=== PATIENT | male | born 1990 | race Caucasian/White ===

== ENCOUNTER 2019-06-25 15:21 | Inpatient (IN) | payer OTHER ==
[2019-06-25 17:37] VITALS: BMI 37.9
--- NOTE | 2019-06-25 19:06 | PN ---
Teaching Attending Note Name of Resident: Lalitha Dietrich ATTENDING PHYSICIAN STATEMENT I saw and evaluated the patient. I reviewed the resident's note and discussed the case with the resident. I agree with the resident's findings and plan as documented. SUBJECTIVE: 28 yo with no medical problems, with alcohol use disorder, K2 use and here for detox. alcohol- drinks 2 pints of vodka/day was in court mandated program last year- relapsed after completing the program K2 2 blunts/day CIWA 12 OBJECTIVE: Vital Signs - 24 hr 06/25/19 17:32 Temperature 97.1 F L Pulse Rate 65 Respiratory 16 Rate Blood Pressure 132/92 alert and oriented tremulous ASSESSMENT AND PLAN: alcohol detox protocol
[2019-06-25] MEDS ORDERED: ACETAMINOPHEN 325 MG TABLET (FP) PO PRN ×2 (19:22)
[2019-06-25] MEDS ORDERED: MAGNESIUM HYDROX 2400MG/30ML ORAL SUSPENSION 30 ML CUP PO PRN (19:22)
[2019-06-25] MEDS ORDERED: MELATONIN 5 MG TABLETS PO PRN (19:22)
[2019-06-25] MEDS ORDERED: IBUPROFEN 400 MG TABLET (FP) PO PRN (19:22)
[2019-06-25] MEDS ORDERED: MENTHOL/PHENOL 1 EACH UD MM PRN (19:22)
[2019-06-25] MEDS ORDERED: BISMUTH SUBSALICYLATE 524 MG/30 ML UD PO PRN (19:22)
[2019-06-25] MEDS ORDERED: NICOTINE POLACRILEX 2 MG GUM BUC PRN (19:22)
[2019-06-25] MEDS ORDERED: MAGNESIUM CITRATE 300 ML BOTTLE PO PRN (19:22)
[2019-06-25] MEDS ORDERED: MAG HYDROX/AL HYDROX/SIMETH 30 ML UNIT-DOSE CUP PO PRN (19:22)
[2019-06-25] MEDS ORDERED: hydrOXYzine PAMOATE 25 MG CAPSULE (FP) PO PRN (19:22)
[2019-06-25] MEDS ORDERED: chlordiazePOXIDE HCL 25 MG CAPSULE PO PRN (19:22)
[2019-06-25] MEDS ORDERED: METHOCARBAMOL 500 MG TABLET PO PRN (19:22)
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
[2019-06-25] MEDS ORDERED: chlordiazePOXIDE HCL 25 MG CAPSULE PO ONE (19:45)
[2019-06-25] MEDS ORDERED: THIAMINE HCL 100 MG TABLET (FP) PO SCH (22:00)
[2019-06-25] MEDS: chlordiazePOXIDE HCL 25 MG CAPSULE PO SCH (22:04)
[2019-06-26] MEDS: chlordiazePOXIDE HCL 25 MG CAPSULE PO SCH ×3 (06:18→18:09)
[2019-06-26] MEDS ORDERED: PRENATAL VITAMINS W/ FOLIC ACID TABLET (FP) PO SCH (10:00)
[2019-06-26 10:53] LABS: HEMATOCRIT 42.2 % (35.4-49); HEMOGLOBIN 14.2 GM/dL (11.7-16.9); MCH 30.4 pg (25.7-33.7); MCHC 33.7 g/dl (32.0-35.9); MEAN PLT VOLUME 8.4 fl (7.5-11.1); PLATELET COUNT 295 K/MM3 (134-434); RBC 4.69 M/mm3 (4.00-5.60); RDW 14.1 % (11.9-15.9); WHITE BLOOD COUNT 8.7 K/mm3 (4.0-10.0)
[2019-06-26 11:07] LABS: ALBUMIN 3.5 g/dl (3.4-5.0); BLOOD UREA NITROGEN 13.4 mg/dL (7-18); CALCIUM 9.2 mg/dL (8.5-10.1); CREATININE 0.9 mg/dL (0.55-1.3); POTASSIUM 4.3 mmol/L (3.5-5.1); TOT PROT 6.7 g/dl (6.4-8.2)
--- NOTE | 2019-06-26 11:51 | PN ---
S CIWA - CIWA Score Nausea/Vomitin-Mild Nausea/No Vomiting Muscle Tremors: 1-None Visible, but [place] Anxiety: 1-Mildly Anxious Agitation: 1-Slight > Activity Paroxysmal Sweats: No Perspiration Orientation: 0-Oriented Tacttile Disturbances: 0-None Auditory Disturbances: 0-None Visual Disturbances: 0-None Headache: 0-None Present CIWA-Ar Total Score: 4 [facility] Progress Note (SOAP) Subjective: Patient has no complaints. Objective: 06/26/19 11:51 Laboratory 06/26/19 06/26/19 06/26/19 07:00 07:00 07:00 WBC 8.7 K/mm3 K/mm3 (4.0-10.0) RBC 4.69 M/mm3 M/mm3 (4.00-5.60) Hgb 14.2 GM/dL GM/dL (11.7-16.9) Hct 42.2 % % (35.4-49) MCV 90.0 fl fl (80-96) MCH 30.4 pg pg (25.7-33.7) MCHC 33.7 g/dl g/dl (32.0-35.9) RDW 14.1 % % (11.9-15.9) Plt Count 295 K/MM3 D K/MM3 (134-434) MPV 8.4 fl fl (7.5-11.1) Sodium 141 mmol/L mmol/L (136-145) Potassium 4.3 mmol/L mmol/L (3.5-5.1) Chloride 104 mmol/L mmol/L (98-107) Carbon Dioxide 32 mmol/L mmol/L (21-32) Anion Gap 4 MMOL/L L MMOL/L (8-16) BUN 13.4 mg/dL mg/dL (7-18) Creatinine 0.9 mg/dL mg/dL (0.55-1.3) Est GFR (CKD-EPI)AfAm 135.19 Est GFR (CKD-EPI)NonAf 116.64 Random Glucose 94 mg/dL mg/dL (74-106) Calcium 9.2 mg/dL mg/dL (8.5-10.1) Total Bilirubin 1.0 mg/dL mg/dL (0.2-1) AST 13 U/L L U/L (15-37) ALT 22 U/L U/L (13-61) Alkaline Phosphatase 74 U/L U/L (45-117) Total Protein 6.7 g/dl g/dl (6.4-8.2) Albumin 3.5 g/dl g/dl (3.4-5.0) HIV 1&2 Antibody Screen Cancelled HIV P24 Antigen Cancelled Assessment: 06/26/19 11:51 1. Alcohol Withdrawal Plan: 1. Alcohol Withdrawal: Patient is actually feeling better. Continue detox. Labs reviewed no abnormalities. Dr. Ramirez
[2019-06-26 17:17] VITALS: BP 104/66; PULSE 72; TEMP 97.1
--- NOTE | 2019-06-26 18:06 | DS ---
[facility] Detox Discharge Summary Admission Date: 06/25/19 Discharge Date: 06/26/19 - History Pertinent Past History: Pt here for alcohol and K2 use- pt now states that he feels "dope sick" and needs to go out to get this. Urine tox at admission did not show opioids. - Physical Exam Results Vital Signs: Vital Signs Temperature 97.1 F L 06/26/19 17:16 Pulse Rate 72 06/26/19 17:16 Respiratory Rate 18 06/26/19 17:16 Blood Pressure 104/66 06/26/19 17:16 O2 Sat by Pulse Oximetry (%) - Medication Discharge Medications: Ambulatory Orders NK [No Known Home Medication] 07/24/14
[2019-06-27] MEDS ORDERED: chlordiazePOXIDE HCL 25 MG CAPSULE PO SCH (05:00)
[2019-06-28] MEDS ORDERED: chlordiazePOXIDE HCL 10 MG CAPSULE PO PRN
[2019-06-28] MEDS ORDERED: chlordiazePOXIDE HCL 10 MG CAPSULE PO SCH (05:00)
[2019-06-29] MEDS ORDERED: chlordiazePOXIDE HCL 10 MG CAPSULE PO SCH (05:00)
[2019-06-30] MEDS ORDERED: chlordiazePOXIDE HCL 10 MG CAPSULE PO ONE (05:00)
== END 2019-06-26 18:30 | disposition left against medical advice (07) | DRG 770 ==
LOC: YASAS 15:21 → Y3N 19:39
PROVIDERS: ADMIT Surgery; ATTEND Surgery
PROC: HZ2ZZZZ Detoxification Services for Substance Abuse Treatment (ICD-10-PCS; principal; 2019-06-25)
DX: F10.230 Alcohol dependence with withdrawal, uncomplicated (principal); F12.20 Cannabis dependence, uncomplicated; F17.210 Nicotine dependence, cigarettes, uncomplicated; J45.909 Unspecified asthma, uncomplicated
CPT/HCPCS: 36415; 80053; 85027; 86480; 86593; 87389

== ENCOUNTER 2019-11-02 08:26 | Inpatient (IN) | payer OTHER ==
[2019-11-02 08:39] VITALS: BMI 34.4
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
[2019-11-02] MEDS ORDERED: MENTHOL/PHENOL 1 EACH UD MM PRN (09:06)
[2019-11-02] MEDS ORDERED: MAGNESIUM CITRATE 300 ML BOTTLE PO PRN (09:06)
[2019-11-02] MEDS ORDERED: MAGNESIUM HYDROX 2400MG/30ML ORAL SUSPENSION 30 ML CUP PO PRN (09:06)
[2019-11-02] MEDS ORDERED: LORazepam 1 MG TABLET PO PRN (09:06)
[2019-11-02] MEDS ORDERED: MELATONIN 5 MG TABLETS PO PRN (09:06)
[2019-11-02] MEDS ORDERED: hydrOXYzine PAMOATE 25 MG CAPSULE (FP) PO PRN (09:06)
[2019-11-02] MEDS ORDERED: IBUPROFEN 400 MG TABLET (FP) PO PRN (09:06)
[2019-11-02] MEDS ORDERED: MAG HYDROX/AL HYDROX/SIMETH 30 ML UNIT-DOSE CUP PO PRN (09:06)
[2019-11-02] MEDS ORDERED: ACETAMINOPHEN 325 MG TABLET (FP) PO PRN (09:06)
[2019-11-02] MEDS ORDERED: BISMUTH SUBSALICYLATE 262 MG/15 ML BTL PO PRN (09:06)
[2019-11-02] MEDS: PRENATAL VITAMINS W/ FOLIC ACID TABLET (FP) PO SCH (10:09)
[2019-11-02] MEDS: NICOTINE 14 MG/24 HOURS TOPICAL PATCH TD SCH (10:09)
[2019-11-02] MEDS: LORazepam 2 MG TABLET PO SCH ×3 (10:09→22:29)
[2019-11-02] MEDS ORDERED: PNEUMOCOCCAL 23 VACCINE 0.5 ML VIAL IM ONE (12:00)
[2019-11-02 12:33] LABS: HEMATOCRIT 45.8 % (35.4-49); HEMOGLOBIN 15.3 GM/dL (11.7-16.9); MCH 30.4 pg (25.7-33.7); MCHC 33.5 g/dl (32.0-35.9); MEAN CELL VOLUME 90.7 fl (80-96); MEAN PLT VOLUME 8.3 fl (7.5-11.1); PLATELET COUNT 286 K/MM3 (134-434); RBC 5.06 M/mm3 (4.00-5.60); RDW 14.5 % (11.9-15.9); WHITE BLOOD COUNT 6.4 K/mm3 (4.0-10.0)
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
[2019-11-02 12:48] LABS: ALBUMIN 4.1 g/dl (3.4-5.0); BILIRUBIN,TOTAL 0.5 mg/dL (0.2-1); BLOOD UREA NITROGEN 10.1 mg/dL (7-18); CREATININE 0.9 mg/dL (0.55-1.3); POTASSIUM 4.1 mmol/L (3.5-5.1); TOT PROT 7.1 g/dl (6.4-8.2)
[2019-11-02] MEDS: THIAMINE HCL 100 MG TABLET (FP) PO SCH (22:29)
[2019-11-03] MEDS: LORazepam 2 MG TABLET PO SCH ×4 (06:04→22:28)
[2019-11-03] MEDS: hydrOXYzine PAMOATE 50 MG CAPSULE (FP) PO PRN ×3 (06:30→18:37)
--- NOTE | 2019-11-03 10:00 | PN ---
S CIWA - CIWA Score Nausea/Vomitin-Mild Nausea/No Vomiting Muscle Tremors: 2 Anxiety: 3 Agitation: 3 Paroxysmal Sweats: No Perspiration Orientation: 0-Oriented Tacttile Disturbances: 3-Moderate Itch/Numb/Burn Auditory Disturbances: 0-None Visual Disturbances: 0-None Headache: 1-Very Mild CIWA-Ar Total Score: 13 S Progress Note (SOAP) Subjective: alert,irritable,anxious,interrupted sleep,pain in the body,insomnia Objective: 11/03/19 09:58 Vital Signs Temperature 97.9 F 11/03/19 09:22 Pulse Rate 102 H 11/03/19 09:22 Respiratory Rate 18 11/03/19 09:22 Blood Pressure 128/83 11/03/19 09:22 O2 Sat by Pulse Oximetry (%) 11/03/19 09:58 Laboratory Last Values WBC 6.4 K/mm3 (4.0-10.0) 11/02/19 09:15 RBC 5.06 M/mm3 (4.00-5.60) 11/02/19 09:15 Hgb 15.3 GM/dL (11.7-16.9) 11/02/19 09:15 Hct 45.8 % (35.4-49) 11/02/19 09:15 MCV 90.7 fl (80-96) 11/02/19 09:15 MCH 30.4 pg (25.7-33.7) 11/02/19 09:15 MCHC 33.5 g/dl (32.0-35.9) 11/02/19 09:15 RDW 14.5 % (11.9-15.9) 11/02/19 09:15 Plt Count 286 K/MM3 (134-434) 11/02/19 09:15 MPV 8.3 fl (7.5-11.1) 11/02/19 09:15 Sodium 138 mmol/L (136-145) 11/02/19 09:15 Potassium 4.1 mmol/L (3.5-5.1) 11/02/19 09:15 Chloride 102 mmol/L (98-107) 11/02/19 09:15 Carbon Dioxide 28 mmol/L (21-32) 11/02/19 09:15 Anion Gap 7 MMOL/L (8-16) L 11/02/19 09:15 BUN 10.1 mg/dL (7-18) 11/02/19 09:15 Creatinine 0.9 mg/dL (0.55-1.3) 11/02/19 09:15 Est GFR (CKD-EPI)AfAm 134.24 11/02/19 09:15 Est GFR (CKD-EPI)NonAf 115.82 11/02/19 09:15 Random Glucose 82 mg/dL (74-106) 11/02/19 09:15 Calcium 9.0 mg/dL (8.5-10.1) 11/02/19 09:15 Total Bilirubin 0.5 mg/dL (0.2-1) 11/02/19 09:15 AST 24 U/L (15-37) 11/02/19 09:15 ALT 31 U/L (13-61) 11/02/19 09:15 Alkaline Phosphatase 70 U/L (45-117) 11/02/19 09:15 Total Protein 7.1 g/dl (6.4-8.2) 11/02/19 09:15 Albumin 4.1 g/dl (3.4-5.0) 11/02/19 09:15 RPR Titer Nonreactive (NONREACTIVE) 11/02/19 09:15 Assessment: 11/03/19 10:00 withdrawal symptom Plan: continue detox ativan regimen
[2019-11-03] MEDS: PRENATAL VITAMINS W/ FOLIC ACID TABLET (FP) PO SCH (10:36)
[2019-11-03] MEDS: NICOTINE 14 MG/24 HOURS TOPICAL PATCH TD SCH (10:38)
[2019-11-03] MEDS ORDERED: PNEUMOC 13-VAL CONJ-DIP CRM/PF 0.5 ML DISP.SYRIN IM ONE (12:00)
[2019-11-03] MEDS ORDERED: FLU VACCINE QUAD 60 MCG/0.5 ML (MDV 19-20) IM ONE (12:00)
[2019-11-03] MEDS: QUEtiapine FUMARATE 50 MG TABLET PO SCH (22:29)
[2019-11-03] MEDS: THIAMINE HCL 100 MG TABLET (FP) PO SCH (22:29)
[2019-11-04] MEDS: LORazepam 1 MG TABLET PO SCH ×4 (06:47→22:10)
[2019-11-04] MEDS ORDERED: NAPROXEN 375 MG TABLET PO PRN (09:17)
[2019-11-04] MEDS ORDERED: BENZTROPINE MESYLATE 1 MG TABLET PO PRN (09:33)
--- NOTE | 2019-11-04 09:40 | PN ---
Psychiatric Progress Note Vital Signs: Vital Signs Period Temp Pulse Resp BP Sys/Singh Pulse Ox Last 24 Hr 97.1 F-98.4 F 74-86 16-18 123-134/61-84 Date of Session: 11/04/19 Chief Complaint:: Consultation ordered for re evaluation of patient. HPI: Patient admitted to for alcohol and cannabis dependence. Consultation ordered after patient was observed pacing around the unit and talking to self by nursing staff. ROS: Patient is alert + oriented X3. Patient appears restless but is redirectable. Current Medications: Active Medications Generic Name Dose Route Start Last Admin Trade Name Freq PRN Reason Stop Dose Admin Acetaminophen 650 mg 11/02/19 09:06 Tylenol - PO Q6H PRN PAIN LEVEL 4 - 6 Acetaminophen 650 mg 11/02/19 09:06 Tylenol - PO Q6H PRN FEVER Al Hydroxide/Mg Hydroxide 30 ml 11/02/19 09:06 Mylanta Oral Suspension - PO Q6H PRN DYSPEPSIA Benztropine Mesylate 0.5 mg 11/04/19 09:33 Cogentin - PO BID PRN stiffness Bismuth Subsalicylate 30 ml 11/02/19 09:06 Pepto-Bismol Liquid - PO Q1H PRN DIARRHEA Eucalyptus/Menthol/Phenol/Sorbitol 1 each 11/02/19 09:06 Cepastat Lozenge - MM 11/08/19 09:06 Q4H PRN SORE THROAT Hydroxyzine Pamoate 50 mg 11/02/19 13:04 11/03/19 18:37 Vistaril - PO 11/08/19 09:06 50 mg Q6H PRN Administration For Anxiety Lorazepam 0.5 mg 11/05/19 05:00 Ativan - PO 11/05/19 23:01 Q6H SHANNON Lorazepam 0.5 mg 11/05/19 00:00 Ativan - PO 11/06/19 00:00 Q4H PRN Symptoms of Withdrawal Lorazepam 0.5 mg 11/06/19 05:00 Ativan - PO 11/06/19 05:01 ONCE ONE Lorazepam 1 mg 11/04/19 05:00 11/04/19 06:47 Ativan - PO 11/04/19 23:01 Not Given 0500,1100,1700,2300 SHANNON Lorazepam 1 mg 11/02/19 09:06 11/03/19 15:01 Ativan - PO 11/04/19 23:59 1 mg Q4H PRN Administration Symptoms of Withdrawal Magnesium Citrate 300 ml 11/02/19 09:06 Citroma - PO Q48H PRN CONSTIPATION Magnesium Hydroxide 30 ml 11/02/19 09:06 Milk Of Magnesia - PO PRN PRN CONSTIPATION Melatonin 5 mg 11/02/19 09:06 11/03/19 22:29 Melatonin PO 5 mg HS PRN Administration INSOMNIA Methocarbamol 500 mg 11/02/19 09:06 Robaxin - PO 11/08/19 09:06 Q6H PRN MUSCLE SPASMS Naproxen 375 mg 11/04/19 09:17 Naprosyn - PO BID PRN PAIN LEVEL 4 - 6 Nicotine 14 mg 11/02/19 10:00 11/03/19 10:38 Nicoderm Patch - TD Not Given DAILY SHANNON Olanzapine 5 mg 11/04/19 10:00 Zyprexa - PO BID SHANNON Multivit/Folic Acid/Iron 1 tab 11/02/19 10:00 11/03/19 10:36 Vitamins (Sjr) - PO 1 tab DAILY SHANNON Administration Quetiapine Fumarate 50 mg 11/03/19 22:00 11/03/19 22:29 Seroquel - PO 50 mg HS SHANNON Administration Thiamine HCl 100 mg 11/02/19 22:00 11/03/19 22:29 Vitamin B1 - PO 100 mg HS SHANNON Administration Medication(s) Change(s): Yes. Will order zyprexa 5mg BID + Cogentin 0.5mg BID PRN + Vistaril 50mg Q4H Current Side Effect: No Lab tests ordered: No Lab tests reviewed: Yes Provider note:: Consultation ordered after patient was observed by nursing staff to be pacing around unit, talking to self, cursing loudly and activing erratic. Upon appoach patient was cooperative with marketing writer and able to speak to marketing writer inside of his room. Patient able to answer questions appropriately. States that he is homeless and currently resides in in the [address] [place] [address]. States that he would like to complete detox and attend rehab. Patient appears slightly restless, anxious, slighly irritable, and labile but is redirectable. Patient with rambling speech but it can be possibly due to a speech disorder. Patient observed singing and dancing in front of the mirror of the nursing station. When asked if he is aware of his behavior, patient stated, " I like rap music" then displays his tattoo's to marketing writer. Despite denying psychotic symptoms patient may be internally preoccupied. Patient in agreement to accept psychotropic medications. Will continue seroquel 50mg for insomnia. Will add Zyprexa 5mg BID + cogentin 0.5mg BID PRN. He denies auditory/visual hallucinations. Denies thoughts or urges to hurt self or others. If patient refuses to accept medication or further decompensates patient should be considered for psychiatric transfer to [facility]. Case discussed with Dr. Tse and nursing staff. Total face to face time:: 30 Mental Status Exam - Mental Status Exam Alert and Oriented to: Time, Place, Person Cognitive Function: Good Patient Appearance: Well Groomed Mood: Withdrawn, Anxious Affect: Labile Patient Behavior: Restless (despite restless behavior patient is cooperative with interviewer), Cooperative Speech Pattern: Slurred, Rambling Voice Loudness: Normal Thought Process: Goal Oriented Thought Disorder: Present (possibly internally preoccupied but willing to accept medications and cooperative with marketing writer) Hallucinations: Denies Suicidal Ideation: Denies Homicidal Ideation: Denies Insight/Judgement: Poor Sleep: Fair Appetite: Fair Muscle strength/Tone: Normal Gait/Station: Normal Psychiatric Treatment Plan - Problem List (1) Substance induced mood disorder Current Visit: Yes (2) Alcohol dependence with withdrawal Current Visit: Yes Qualifiers: Complication of substance-induced condition: uncomplicated Qualified Code(s ): F10.230 - Alcohol dependence with withdrawal, uncomplicated (3) Cannabis dependence Current Visit: Yes (4) Nicotine dependence Current Visit: Yes Qualifiers: Nicotine product type: cigarettes Substance use status: uncomplicated Qualified Code(s): F17.210 - Nicotine dependence, cigarettes, uncomplicated (5) Substance-induced sleep disorder Current Visit: Yes (6) Drug-induced mood disorder Current Visit: Yes (7) Drug-induced psychotic disorder Current Visit: Yes Qualifiers: Complication of substance-induced condition: with unspecified complication Qualified Code(s): F19.959 - Other psychoactive substance use, unspecified with psychoactive substance-induced psychotic disorder, unspecified Comment: Suspected/rule-out
--- NOTE | 2019-11-04 10:08 | PN ---
S CIWA - CIWA Score Nausea/Vomitin-Mild Nausea/No Vomiting Muscle Tremors: 1-None Visible, but [place] Anxiety: 2 Agitation: 2 Paroxysmal Sweats: No Perspiration Orientation: 0-Oriented Tacttile Disturbances: 1-Very Mild Itch/Numbness Auditory Disturbances: 0-None Visual Disturbances: 0-None Headache: 2-Mild CIWA-Ar Total Score: 9 BHS Progress Note (SOAP) Subjective: alert,irritable,anxious,interrupted sleep,oriented x3,no suicidal,no homicidal ideation Objective: 11/04/19 10:07 Vital Signs Temperature 97.7 F 11/04/19 09:52 Pulse Rate 90 11/04/19 09:52 Respiratory Rate 18 11/04/19 09:52 Blood Pressure 125/93 11/04/19 09:52 O2 Sat by Pulse Oximetry (%) Laboratory Last Values WBC 6.4 K/mm3 (4.0-10.0) 11/02/19 09:15 RBC 5.06 M/mm3 (4.00-5.60) 11/02/19 09:15 Hgb 15.3 GM/dL (11.7-16.9) 11/02/19 09:15 Hct 45.8 % (35.4-49) 11/02/19 09:15 MCV 90.7 fl (80-96) 11/02/19 09:15 MCH 30.4 pg (25.7-33.7) 11/02/19 09:15 MCHC 33.5 g/dl (32.0-35.9) 11/02/19 09:15 RDW 14.5 % (11.9-15.9) 11/02/19 09:15 Plt Count 286 K/MM3 (134-434) 11/02/19 09:15 MPV 8.3 fl (7.5-11.1) 11/02/19 09:15 Sodium 138 mmol/L (136-145) 11/02/19 09:15 Potassium 4.1 mmol/L (3.5-5.1) 11/02/19 09:15 Chloride 102 mmol/L (98-107) 11/02/19 09:15 Carbon Dioxide 28 mmol/L (21-32) 11/02/19 09:15 Anion Gap 7 MMOL/L (8-16) L 11/02/19 09:15 BUN 10.1 mg/dL (7-18) 11/02/19 09:15 Creatinine 0.9 mg/dL (0.55-1.3) 11/02/19 09:15 Est GFR (CKD-EPI)AfAm 134.24 11/02/19 09:15 Est GFR (CKD-EPI)NonAf 115.82 11/02/19 09:15 Random Glucose 82 mg/dL (74-106) 11/02/19 09:15 Calcium 9.0 mg/dL (8.5-10.1) 11/02/19 09:15 Total Bilirubin 0.5 mg/dL (0.2-1) 11/02/19 09:15 AST 24 U/L (15-37) 11/02/19 09:15 ALT 31 U/L (13-61) 11/02/19 09:15 Alkaline Phosphatase 70 U/L (45-117) 11/02/19 09:15 Total Protein 7.1 g/dl (6.4-8.2) 11/02/19 09:15 Albumin 4.1 g/dl (3.4-5.0) 11/02/19 09:15 RPR Titer Nonreactive (NONREACTIVE) 11/02/19 09:15 Assessment: 11/04/19 10:07 withdrawal symptom Plan: continue detox ativan regimen,psychiatric evaluation
[2019-11-04] MEDS: NICOTINE 14 MG/24 HOURS TOPICAL PATCH TD SCH (10:16)
[2019-11-04] MEDS: hydrOXYzine PAMOATE 50 MG CAPSULE (FP) PO PRN ×2 (10:17→19:55)
[2019-11-04] MEDS: PRENATAL VITAMINS W/ FOLIC ACID TABLET (FP) PO SCH (10:17)
[2019-11-04] MEDS: OLANZapine 5 MG TABLET PO SCH ×2 (10:59→22:10)
[2019-11-04] MEDS: METHOCARBAMOL 500 MG TABLET PO PRN ×2 (11:39→17:16)
[2019-11-04] MEDS: cloNIDine HCL 0.1 MG TABLET PO SCH ×2 (11:39→22:10)
[2019-11-04] MEDS: THIAMINE HCL 100 MG TABLET (FP) PO SCH (22:10)
[2019-11-04] MEDS: QUEtiapine FUMARATE 50 MG TABLET PO SCH (22:10)
[2019-11-05] MEDS ORDERED: LORazepam 0.5 MG TABLET PO PRN
[2019-11-05] MEDS: LORazepam 0.5 MG TABLET PO SCH ×4 (06:38→22:09)
[2019-11-05] MEDS: ACETAMINOPHEN 325 MG TABLET (FP) PO PRN ×2 (07:06→17:27)
[2019-11-05] MEDS: cloNIDine HCL 0.1 MG TABLET PO SCH ×2 (10:13→22:09)
[2019-11-05] MEDS: NICOTINE 14 MG/24 HOURS TOPICAL PATCH TD SCH (10:13)
[2019-11-05] MEDS: PRENATAL VITAMINS W/ FOLIC ACID TABLET (FP) PO SCH (10:13)
[2019-11-05] MEDS: OLANZapine 5 MG TABLET PO SCH ×2 (10:13→22:09)
--- NOTE | 2019-11-05 10:52 | PN ---
S CIWA - CIWA Score Nausea/Vomitin-Mild Nausea/No Vomiting Muscle Tremors: 1-None Visible, but [place] Anxiety: 2 Agitation: 2 Paroxysmal Sweats: No Perspiration Orientation: 0-Oriented Tacttile Disturbances: 1-Very Mild Itch/Numbness Auditory Disturbances: 0-None Visual Disturbances: 0-None Headache: 1-Very Mild CIWA-Ar Total Score: 8 BHS Progress Note (SOAP) Subjective: alert,irritable,anxious,mentioned has multiple lesions of scrotal noel for 4 month Objective: 11/05/19 10:47 Vital Signs Temperature 97.3 F L 11/05/19 09:42 Pulse Rate 90 11/05/19 09:42 Respiratory Rate 18 11/05/19 09:42 Blood Pressure 141/55 L 11/05/19 09:42 O2 Sat by Pulse Oximetry (%) 11/05/19 10:48 withdrawal symptom Assessment: 11/05/19 10:49 withdrawal symptom 11/05/19 10:49 multiple skin lesions of scrotal noel for 4 months Plan: continue detox ativan regimen,psychiatric evaluation for anxiety,patient will be followed up by his medical provider for follow up on lesions of scrotal wall
[2019-11-05] MEDS: METHOCARBAMOL 500 MG TABLET PO PRN (10:53)
[2019-11-05] MEDS: hydrOXYzine PAMOATE 50 MG CAPSULE (FP) PO PRN (10:54)
[2019-11-05] MEDS: QUEtiapine FUMARATE 50 MG TABLET PO SCH (22:09)
[2019-11-05] MEDS: THIAMINE HCL 100 MG TABLET (FP) PO SCH (22:21)
[2019-11-06] MEDS ORDERED: LORazepam 0.5 MG TABLET PO ONE (05:00)
[2019-11-06 07:06] VITALS: BP 133/67; PULSE 48; TEMP 97.7
--- NOTE | 2019-11-06 08:48 | DS ---
[facility] Detox Discharge Summary Admission Date: 11/02/19 Discharge Date: 11/06/19 - History Present History: Alcohol Dependence, Cannabis Dependence - Physical Exam Results Vital Signs: Vital Signs Temperature 97.7 F 11/06/19 07:05 Pulse Rate 48 L 11/06/19 07:05 Respiratory Rate 18 11/06/19 07:05 Blood Pressure 133/67 11/06/19 07:05 O2 Sat by Pulse Oximetry (%) Pertinent Admission Physical Exam Findings: Vital Signs Temperature 97.7 F 11/06/19 07:05 Pulse Rate 48 L 11/06/19 07:05 Respiratory Rate 18 11/06/19 07:05 Blood Pressure 133/67 11/06/19 07:05 O2 Sat by Pulse Oximetry (%) Laboratory Tests 11/02/19 11/02/19 11/02/19 09:15 09:15 09:15 WBC 6.4 RBC 5.06 Hgb 15.3 Hct 45.8 MCV 90.7 MCH 30.4 MCHC 33.5 RDW 14.5 Plt Count 286 MPV 8.3 Sodium 138 Potassium 4.1 Chloride 102 Carbon Dioxide 28 Anion Gap 7 L BUN 10.1 Creatinine 0.9 Est GFR (CKD-EPI)AfAm 134.24 Est GFR (CKD-EPI)NonAf 115.82 Random Glucose 82 Calcium 9.0 Total Bilirubin 0.5 AST 24 ALT 31 Alkaline Phosphatase 70 Total Protein 7.1 Albumin 4.1 RPR Titer Nonreactive aaox3 ambulating no acute distress - Treatment Hospital Course: Detox Protocol Followed, Detoxed Safely, Responded well, Discharged Condition Good, Rehab Referral Accepted Patient has Accepted a Rehab Referral to: referred to [facility] rehab - Medication Discharge Medications: Ambulatory Orders NK [No Known Home Medication] 07/24/14 - Diagnosis (1) Alcohol dependence with withdrawal Current Visit: Yes Status: Chronic Qualifiers: Complication of substance-induced condition: uncomplicated Qualified Code(s ): F10.230 - Alcohol dependence with withdrawal, uncomplicated (2) Drug-induced mood disorder Current Visit: Yes Status: Acute (3) Drug-induced psychotic disorder Current Visit: Yes Status: Acute Qualifiers: Complication of substance-induced condition: with unspecified complication Qualified Code(s): F19.959 - Other psychoactive substance use, unspecified with psychoactive substance-induced psychotic disorder, unspecified (4) Personality disorder Current Visit: Yes Status: Acute (5) Substance induced mood disorder Current Visit: Yes Status: Acute (6) Substance-induced sleep disorder Current Visit: Yes Status: Acute (7) Alcohol dependence, continuous Current Visit: Yes Status: Chronic (8) Asthma Current Visit: Yes Status: Chronic Qualifiers: Asthma severity: mild Asthma persistence: intermittent (9) Cannabis dependence Current Visit: Yes Status: Chronic (10) MDD (major depressive disorder) Current Visit: Yes Status: Chronic (11) Nicotine dependence Current Visit: Yes Status: Chronic Qualifiers: Nicotine product type: cigarettes Substance use status: uncomplicated Qualified Code(s): F17.210 - Nicotine dependence, cigarettes, uncomplicated - AMA Did Patient Leave Against Medical Advice: No
[2019-11-06] MEDS: cloNIDine HCL 0.1 MG TABLET PO SCH (10:17)
[2019-11-06] MEDS: PRENATAL VITAMINS W/ FOLIC ACID TABLET (FP) PO SCH (10:17)
[2019-11-06] MEDS: OLANZapine 5 MG TABLET PO SCH (10:17)
[2019-11-06] MEDS: NICOTINE 14 MG/24 HOURS TOPICAL PATCH TD SCH (10:18)
== END 2019-11-06 10:49 | disposition home or self-care (01) | DRG 775 ==
LOC: YASAS 08:26 → Y6N 09:29
PROVIDERS: ADMIT Allergy & Immunology; ATTEND Allergy & Immunology
PROC: HZ2ZZZZ Detoxification Services for Substance Abuse Treatment (ICD-10-PCS; principal; 2019-11-02)
DX: F10.230 Alcohol dependence with withdrawal, uncomplicated (principal); F12.20 Cannabis dependence, uncomplicated; F17.210 Nicotine dependence, cigarettes, uncomplicated; F19.24 Other psychoactive substance dependence with psychoactive substance-induced mood disorder; F19.282 Other psychoactive substance dependence with psychoactive substance-induced sleep disorder; F60.9 Personality disorder, unspecified; F19.951 Other psychoactive substance use, unspecified with psychoactive substance-induced psychotic disorder with hallucinations; F32.9 Major depressive disorder, single episode, unspecified; J45.20 Mild intermittent asthma, uncomplicated; N50.89 Other specified disorders of the male genital organs
CPT/HCPCS: 36415; 80053; 85027; 86593; 90732; G0008; G0009; J0735; Q2036

== ENCOUNTER 2022-08-21 10:21 | Inpatient (IN) | payer OTHER ==
[2022-08-21 12:01] VITALS: BMI 36.3
[2022-08-21] MEDS ORDERED: BENZOCAINE/MENTHOL (CHLORASEPTIC ) LOZENGE MM PRN (12:38)
[2022-08-21] MEDS ORDERED: NALOXONE HCL (KLOXXADO) 8 MG SPRAY NS PRN (12:38)
[2022-08-21] MEDS ORDERED: NICOTINE 10 MG CARTRIDGE (INHALER) IH PRN (12:38)
[2022-08-21] MEDS ORDERED: ONDANSETRON *ODT* 4 MG TABLET SL PRN (12:38)
[2022-08-21] MEDS ORDERED: IBUPROFEN 600 MG TABLET (FP) PO PRN (12:38)
[2022-08-21] MEDS ORDERED: MAGNESIUM CITRATE 300 ML BOTTLE PO PRN (12:38)
[2022-08-21] MEDS ORDERED: DICYCLOMINE HCL 10 MG CAPSULE PO PRN (12:38)
[2022-08-21] MEDS ORDERED: MAG HYDROX/AL HYDROX/SIMETH 30 ML UNIT-DOSE CUP PO PRN (12:38)
[2022-08-21] MEDS ORDERED: IBUPROFEN 400 MG TABLET (FP) PO PRN (12:38)
[2022-08-21] MEDS ORDERED: MAGNESIUM HYDROX 2400MG/30ML ORAL SUSPENSION 30 ML CUP PO PRN (12:38)
[2022-08-21] MEDS ORDERED: LOPERAMIDE HCL 2 MG CAPSULE PO PRN (12:38)
[2022-08-21] MEDS ORDERED: BISMUTH SUBSALICYLATE 524 MG/30 ML PO PRN (12:38)
[2022-08-21] MEDS ORDERED: ACETAMINOPHEN 325 MG TABLET (FP) PO PRN ×2 (12:38)
[2022-08-21] MEDS: hydrOXYzine PAMOATE 25 MG CAPSULE (FP) PO SCH ×3 (13:57→22:22)
[2022-08-21] MEDS ORDERED: ALBUTEROL SO4 HFA INHALER IH PRN (14:10)
[2022-08-21] MEDS ORDERED: BUDESONIDE/FORMETEROL FUMARATE 80/4.5 mcg INHALER IH SCH (22:00)
[2022-08-21] MEDS: THIAMINE HCL 100 MG TABLET (FP) PO SCH (22:21)
[2022-08-21] MEDS: BUDESONIDE/FORMETEROL FUMARATE 80/4.5 mcg INHALER IH SCH (22:22)
[2022-08-21] MEDS: MELATONIN 5 MG TABLETS PO SCH (22:23)
[2022-08-22] MEDS: hydrOXYzine PAMOATE 25 MG CAPSULE (FP) PO SCH ×5 (06:26→22:08)
[2022-08-22] MEDS ORDERED: cloNIDine HCL 0.1 MG TABLET PO PRN (08:51)
[2022-08-22] MEDS ORDERED: chlordiazePOXIDE HCL 25 MG CAPSULE PO PRN (08:51)
[2022-08-22] MEDS ORDERED: methaDONE HCL 10 MG TABLET (FOR DETOX USE ONLY) PO ONE (09:15)
[2022-08-22] MEDS: PRENATAL VITAMINS W/ FOLIC ACID TABLET (FP) PO SCH (10:15)
[2022-08-22] MEDS: risperiDONE 2 MG TABLET PO SCH ×2 (10:16→22:08)
[2022-08-22] MEDS: chlordiazePOXIDE HCL 25 MG CAPSULE PO SCH ×3 (10:16→22:08)
[2022-08-22] MEDS: METHOCARBAMOL 500 MG TABLET PO PRN (10:16)
[2022-08-22] MEDS: BUDESONIDE/FORMETEROL FUMARATE 80/4.5 mcg INHALER IH SCH ×2 (10:17→22:11)
[2022-08-22 15:06] LABS: CALCIUM 8.9 mg/dL (8.5-10.1)
[2022-08-22 15:07] LABS: ALBUMIN 3.6 g/dl (3.4-5.0); BLOOD UREA NITROGEN 16.8 mg/dL (7-18)
[2022-08-22 15:10] LABS: CREATININE 0.8 mg/dL (0.55-1.3)
[2022-08-22 15:12] LABS: BILIRUBIN,TOTAL 0.4 mg/dL (0.2-1); TOT PROT 6.8 g/dl (6.4-8.2)
[2022-08-22 15:13] LABS: HEMATOCRIT 38.5 % (35.4-49); HEMOGLOBIN 12.7 GM/dL (11.7-16.9); MCH 28.7 pg (25.7-33.7); MCHC 32.9 g/dl (32.0-35.9); MEAN CELL VOLUME 87.2 fl (80-96); MEAN PLT VOLUME 8.4 fl (7.5-11.1); PLATELET COUNT 323 10^3/uL (134-434); RBC 4.42 M/mm3 (4.00-5.60); RDW 14.4 % (11.9-15.9); WHITE BLOOD COUNT 8.9 K/mm3 (4.0-10.0)
[2022-08-22] MEDS: THIAMINE HCL 100 MG TABLET (FP) PO SCH (22:07)
[2022-08-22] MEDS: traZODone HCL 100 MG TABLET (FP) PO SCH (22:08)
[2022-08-22] MEDS: MELATONIN 5 MG TABLETS PO SCH (22:08)
[2022-08-23] MEDS: hydrOXYzine PAMOATE 25 MG CAPSULE (FP) PO SCH ×5 (05:46→23:02)
[2022-08-23] MEDS: chlordiazePOXIDE HCL 25 MG CAPSULE PO SCH ×4 (05:46→22:03)
[2022-08-23 10:02] LABS: EPI CELLS 13 /uL (0-25.1); HYALINE CASTS 1 /uL (0-3.1); PH,URINE 5.5 (5.0-8.0); URINE APPEARANCE CLEAR; URINE BACTERIA 63 /uL (0-1359); URINE BILIRUBIN NEGATIVE (NEGATIVE); URINE COLOR YELLOW; URINE GLUCOSE (UA) NEGATIVE (NEGATIVE); URINE KETONE NEGATIVE (NEGATIVE); URINE LEUK ESTERASE TRACE (NEGATIVE); URINE NITRITE NEGATIVE (NEGATIVE); URINE PROTEIN NEGATIVE (NEGATIVE); URINE RBC 2 /uL (0-23.9); URINE UROBILINOGEN 0.2 mg/dL (0.2-1.0); URINE WBC 53 /uL (0-25.8)
[2022-08-23] MEDS: risperiDONE 2 MG TABLET PO SCH ×2 (10:12→22:02)
[2022-08-23] MEDS: PRENATAL VITAMINS W/ FOLIC ACID TABLET (FP) PO SCH (10:12)
[2022-08-23] MEDS: METHOCARBAMOL 500 MG TABLET PO PRN (10:12)
[2022-08-23] MEDS: BUDESONIDE/FORMETEROL FUMARATE 80/4.5 mcg INHALER IH SCH ×2 (10:14→22:01)
[2022-08-23] MEDS: THIAMINE HCL 100 MG TABLET (FP) PO SCH (22:03)
[2022-08-23] MEDS: traZODone HCL 100 MG TABLET (FP) PO SCH (22:03)
[2022-08-23] MEDS: MELATONIN 5 MG TABLETS PO SCH (22:38)
[2022-08-24] MEDS: hydrOXYzine PAMOATE 25 MG CAPSULE (FP) PO SCH ×5 (06:20→22:19)
[2022-08-24] MEDS: chlordiazePOXIDE HCL 25 MG CAPSULE PO SCH ×4 (06:21→22:19)
[2022-08-24] MEDS ORDERED: methaDONE HCL 10 MG TABLET (FOR DETOX USE ONLY) PO ONE (10:00)
[2022-08-24] MEDS: PRENATAL VITAMINS W/ FOLIC ACID TABLET (FP) PO SCH (10:25)
[2022-08-24] MEDS: risperiDONE 2 MG TABLET PO SCH ×2 (10:25→22:21)
[2022-08-24] MEDS: METHOCARBAMOL 500 MG TABLET PO PRN (10:26)
[2022-08-24] MEDS: BUDESONIDE/FORMETEROL FUMARATE 80/4.5 mcg INHALER IH SCH ×2 (10:27→22:20)
[2022-08-24] MEDS ORDERED: FLU VACC QS2022-23(6MOS UP)/PF 60 MCG/0.5 ML SYRINGE IM ONE (14:00)
[2022-08-24] MEDS: MELATONIN 5 MG TABLETS PO SCH (22:19)
[2022-08-24] MEDS: THIAMINE HCL 100 MG TABLET (FP) PO SCH (22:19)
[2022-08-24] MEDS: traZODone HCL 100 MG TABLET (FP) PO SCH (22:19)
[2022-08-25] MEDS ORDERED: chlordiazePOXIDE HCL 10 MG CAPSULE PO PRN
[2022-08-25] MEDS: hydrOXYzine PAMOATE 25 MG CAPSULE (FP) PO SCH ×5 (05:31→22:29)
[2022-08-25] MEDS: chlordiazePOXIDE HCL 10 MG CAPSULE PO SCH ×4 (05:31→22:28)
[2022-08-25] MEDS: PRENATAL VITAMINS W/ FOLIC ACID TABLET (FP) PO SCH (10:05)
[2022-08-25] MEDS: risperiDONE 2 MG TABLET PO SCH ×2 (10:05→22:28)
[2022-08-25] MEDS: METHOCARBAMOL 500 MG TABLET PO PRN (10:05)
[2022-08-25] MEDS: BUDESONIDE/FORMETEROL FUMARATE 80/4.5 mcg INHALER IH SCH ×2 (10:07→22:29)
[2022-08-25] MEDS: THIAMINE HCL 100 MG TABLET (FP) PO SCH (22:28)
[2022-08-25] MEDS: traZODone HCL 100 MG TABLET (FP) PO SCH (22:28)
[2022-08-25] MEDS: MELATONIN 5 MG TABLETS PO SCH (23:17)
[2022-08-26] MEDS: chlordiazePOXIDE HCL 10 MG CAPSULE PO SCH ×2 (05:39→18:07)
[2022-08-26] MEDS: hydrOXYzine PAMOATE 25 MG CAPSULE (FP) PO SCH ×5 (05:39→22:24)
[2022-08-26] MEDS ORDERED: methaDONE HCL 10 MG TABLET (FOR DETOX USE ONLY) PO ONE (10:00)
[2022-08-26] MEDS: METHOCARBAMOL 500 MG TABLET PO PRN (10:21)
[2022-08-26] MEDS: risperiDONE 2 MG TABLET PO SCH ×2 (10:21→22:22)
[2022-08-26] MEDS: BUDESONIDE/FORMETEROL FUMARATE 80/4.5 mcg INHALER IH SCH ×2 (10:21→22:23)
[2022-08-26] MEDS: PRENATAL VITAMINS W/ FOLIC ACID TABLET (FP) PO SCH (10:21)
[2022-08-26 13:25] VITALS: RESP 18
[2022-08-26] MEDS: traZODone HCL 100 MG TABLET (FP) PO SCH (22:22)
[2022-08-26] MEDS: THIAMINE HCL 100 MG TABLET (FP) PO SCH (22:22)
[2022-08-26] MEDS: MELATONIN 5 MG TABLETS PO SCH (23:15)
[2022-08-27] MEDS ORDERED: chlordiazePOXIDE HCL 10 MG CAPSULE PO ONE (05:00)
[2022-08-27] MEDS: hydrOXYzine PAMOATE 25 MG CAPSULE (FP) PO SCH ×2 (05:37→09:13)
[2022-08-27 09:13] VITALS: BP 115/69; PULSE 92; TEMP 97.1
[2022-08-27] MEDS: PRENATAL VITAMINS W/ FOLIC ACID TABLET (FP) PO SCH (09:13)
[2022-08-27] MEDS: risperiDONE 2 MG TABLET PO SCH (09:13)
[2022-08-27] MEDS: BUDESONIDE/FORMETEROL FUMARATE 80/4.5 mcg INHALER IH SCH (09:14)
== END 2022-08-27 09:35 | disposition home or self-care (01) | DRG 773 ==
LOC: YASAS 10:21 → Y6N 13:16
PROVIDERS: ADMIT Allergy & Immunology; ATTEND Surgery
PROC: HZ2ZZZZ Detoxification Services for Substance Abuse Treatment (ICD-10-PCS; principal; 2022-08-21)
DX: F11.23 Opioid dependence with withdrawal (principal); F10.230 Alcohol dependence with withdrawal, uncomplicated; F14.20 Cocaine dependence, uncomplicated; F12.20 Cannabis dependence, uncomplicated; F17.210 Nicotine dependence, cigarettes, uncomplicated; F20.9 Schizophrenia, unspecified; F19.282 Other psychoactive substance dependence with psychoactive substance-induced sleep disorder; J45.20 Mild intermittent asthma, uncomplicated; E11.9 Type 2 diabetes mellitus without complications; E66.9 Obesity, unspecified; Z68.36 Body mass index [BMI] 36.0-36.9, adult; Z28.311 Partially vaccinated for COVID-19
CPT/HCPCS: 36415; 80053; 81003; 85027; 86780; C9803-CS; G0008; Q2036; U0003; U0005

== ENCOUNTER 2023-04-24 09:50 | Inpatient (IN) | payer OTHER ==
[2023-04-24 10:09] VITALS: BMI 27.2
[2023-04-24] MEDS ORDERED: BUPRENORPHINE HCL 150 MCG, BUPRENORPHINE HCL 75 MCG BC PRN (10:44)
[2023-04-24] MEDS ORDERED: BISMUTH SUBSALICYLATE 262 MG/15 ML BTL PO PRN (10:44)
[2023-04-24] MEDS ORDERED: diazePAM 5 MG TABLET PO PRN ×2 (10:44)
[2023-04-24] MEDS ORDERED: guaiFENesin 600 MG TABLET.ER (FP) PO PRN (10:44)
[2023-04-24] MEDS ORDERED: ACETAMINOPHEN 325 MG TABLET (FP) PO PRN (10:44)
[2023-04-24] MEDS ORDERED: BENZONATATE 200 MG CAPSULE PO PRN (10:44)
[2023-04-24] MEDS ORDERED: DICYCLOMINE HCL 10 MG CAPSULE PO PRN (10:44)
[2023-04-24] MEDS ORDERED: MAG HYDROX/AL HYDROX/SIMETH 30 ML UNIT-DOSE CUP PO PRN (10:44)
[2023-04-24] MEDS ORDERED: NALOXONE HCL 0.4 MG/ML VIAL IM PRN (10:44)
[2023-04-24] MEDS ORDERED: IBUPROFEN 600 MG TABLET (FP) PO PRN (10:44)
[2023-04-24] MEDS ORDERED: NICOTINE 10 MG CARTRIDGE (INHALER) IH PRN (10:44)
[2023-04-24] MEDS ORDERED: BENZOCAINE/MENTHOL (CHLORASEPTIC ) LOZENGE MM PRN (10:44)
[2023-04-24] MEDS ORDERED: BUPRENORPHINE HCL 150 MCG, BUPRENORPHINE HCL 75 MCG BC ONE (10:44)
[2023-04-24] MEDS ORDERED: IBUPROFEN 400 MG TABLET (FP) PO PRN (10:44)
[2023-04-24] MEDS ORDERED: NALOXONE HCL (KLOXXADO) 8 MG SPRAY NS PRN (10:44)
[2023-04-24] MEDS ORDERED: ONDANSETRON *ODT* 4 MG TABLET SL PRN (10:44)
[2023-04-24] MEDS ORDERED: MAGNESIUM HYDROX 2400MG/30ML ORAL SUSPENSION 30 ML CUP PO PRN (10:44)
[2023-04-24] MEDS ORDERED: LOPERAMIDE HCL 2 MG CAPSULE PO PRN (10:44)
[2023-04-24] MEDS ORDERED: POLYETHYLENE GLYCOL (HEALTHYLAX) 3350 17 GM PACKET PO PRN (10:44)
[2023-04-24] MEDS ORDERED: cloNIDine HCL 0.1 MG TABLET PO ONE (10:44)
[2023-04-24] MEDS ORDERED: diazePAM 5 MG TABLET ONE (11:49)
[2023-04-24] MEDS ORDERED: BUPRENORPHINE HCL 150 MCG FILM BC ONE (11:50)
[2023-04-24] MEDS ORDERED: PRENATAL VITAMINS W/ FOLIC ACID TABLET (FP) PO ONE (11:51)
[2023-04-24] MEDS ORDERED: NICOTINE 14 MG/24 HOURS TOPICAL PATCH TD ONE (11:51)
[2023-04-24] MEDS ORDERED: BUPRENORPHINE HCL 75 MCG FILM BC ONE (11:51)
[2023-04-24] MEDS ORDERED: cloNIDine HCL 0.1 MG TABLET ONE (11:51)
[2023-04-24] MEDS: NICOTINE 14 MG/24 HOURS TOPICAL PATCH TD SCH (11:54)
[2023-04-24] MEDS: PRENATAL VITAMINS W/ FOLIC ACID TABLET (FP) PO SCH (11:55)
[2023-04-24] MEDS: diazePAM 5 MG TABLET PO SCH ×3 (11:55→22:52)
[2023-04-24] MEDS ORDERED: cloNIDine HCL 0.1 MG TABLET PO PRN (14:44)
[2023-04-24 15:19] LABS: HEMATOCRIT 41.7 % (35.4-49); HEMOGLOBIN 14.1 GM/dL (11.7-16.9); MCH 29.7 pg (25.7-33.7); MCHC 33.7 g/dl (32.0-35.9); MEAN PLT VOLUME 7.6 fl (7.5-11.1); PLATELET COUNT 329 10^3/uL (134-434); RBC 4.75 M/mm3 (4.00-5.60); RDW 14.5 % (11.9-15.9); WHITE BLOOD COUNT 7.5 K/mm3 (4.0-10.0)
[2023-04-24 15:43] LABS: POTASSIUM 4.5 mmol/L (3.5-5.1)
[2023-04-24 15:50] LABS: BLOOD UREA NITROGEN 14.3 mg/dL (7-18); CALCIUM 9.2 mg/dL (8.5-10.1)
[2023-04-24 15:53] LABS: CREATININE 0.8 mg/dL (0.55-1.3)
[2023-04-24 15:55] LABS: BILIRUBIN,TOTAL 0.8 mg/dL (0.2-1)
[2023-04-24] MEDS: hydrOXYzine PAMOATE 25 MG CAPSULE (FP) PO PRN (22:51)
[2023-04-24] MEDS: MELATONIN 5 MG TABLETS PO SCH (22:51)
[2023-04-24] MEDS: THIAMINE HCL 100 MG TABLET (FP) PO SCH (22:51)
[2023-04-24] MEDS: METHOCARBAMOL 500 MG TABLET PO PRN (22:51)
[2023-04-25] MEDS ORDERED: BUPRENORPHINE HCL 150 MCG, BUPRENORPHINE HCL 75 MCG BC PRN
[2023-04-25] MEDS: diazePAM 5 MG TABLET PO SCH ×2 (05:35→10:08)
[2023-04-25] MEDS: BUPRENORPHINE HCL 150 MCG, BUPRENORPHINE HCL 75 MCG BC SCH ×2 (05:35→17:37)
[2023-04-25] MEDS: PRENATAL VITAMINS W/ FOLIC ACID TABLET (FP) PO SCH (10:08)
[2023-04-25] MEDS: NICOTINE 14 MG/24 HOURS TOPICAL PATCH TD SCH (10:08)
[2023-04-25] MEDS: LACTULOSE 20 GM/30 ML UDC (FOR ORAL USE ONLY) PO SCH ×4 (10:08→22:29)
[2023-04-25] MEDS ORDERED: LORazepam 1 MG TABLET PO PRN (13:01)
[2023-04-25] MEDS: hydrOXYzine PAMOATE 25 MG CAPSULE (FP) PO PRN ×2 (15:00→22:33)
[2023-04-25] MEDS ORDERED: ALBUTEROL SO4 HFA INHALER IH PRN (17:00)
[2023-04-25] MEDS: LORazepam 2 MG TABLET PO SCH ×2 (17:34→22:33)
[2023-04-25] MEDS: METHOCARBAMOL 500 MG TABLET PO PRN (22:33)
[2023-04-25] MEDS: MELATONIN 5 MG TABLETS PO SCH (22:33)
[2023-04-25] MEDS: THIAMINE HCL 100 MG TABLET (FP) PO SCH (22:33)
[2023-04-25] MEDS: BUDESONIDE/FORMETEROL FUMARATE 80/4.5 mcg INHALER IH SCH (22:36)
[2023-04-26] MEDS: BUPRENORPHINE HCL 450 MCG FILM BC SCH ×2 (05:53→17:57)
[2023-04-26] MEDS: LORazepam 1 MG TABLET PO SCH ×4 (05:53→22:33)
[2023-04-26] MEDS ORDERED: diazePAM 5 MG TABLET PO SCH (06:00)
[2023-04-26] MEDS: LACTULOSE 20 GM/30 ML UDC (FOR ORAL USE ONLY) PO SCH ×2 (10:14→13:15)
[2023-04-26] MEDS: BUDESONIDE/FORMETEROL FUMARATE 80/4.5 mcg INHALER IH SCH ×2 (10:15→22:32)
[2023-04-26] MEDS: PRENATAL VITAMINS W/ FOLIC ACID TABLET (FP) PO SCH (10:15)
[2023-04-26] MEDS: NICOTINE 14 MG/24 HOURS TOPICAL PATCH TD SCH (10:15)
[2023-04-26] MEDS: LORazepam 2 MG TABLET PO SCH (10:16)
[2023-04-26] MEDS: hydrOXYzine PAMOATE 25 MG CAPSULE (FP) PO PRN (18:28)
[2023-04-26] MEDS: MELATONIN 5 MG TABLETS PO SCH (22:32)
[2023-04-26] MEDS: THIAMINE HCL 100 MG TABLET (FP) PO SCH (22:32)
[2023-04-27] MEDS ORDERED: LORazepam 0.5 MG TABLET PO PRN
[2023-04-27] MEDS: METHOCARBAMOL 500 MG TABLET PO PRN ×3 (01:46→22:19)
[2023-04-27] MEDS: LORazepam 0.5 MG TABLET PO SCH ×4 (05:38→22:20)
[2023-04-27] MEDS: BUPRENORPHINE/NALOXONE 4 MG/1 MG FILM PACKET SL SCH ×2 (05:38→17:39)
[2023-04-27] MEDS ORDERED: diazePAM 5 MG TABLET PO SCH (06:00)
[2023-04-27] MEDS: PRENATAL VITAMINS W/ FOLIC ACID TABLET (FP) PO SCH (10:08)
[2023-04-27] MEDS: BUDESONIDE/FORMETEROL FUMARATE 80/4.5 mcg INHALER IH SCH ×2 (10:09→22:21)
[2023-04-27] MEDS: NICOTINE 14 MG/24 HOURS TOPICAL PATCH TD SCH (10:10)
[2023-04-27] MEDS: hydrOXYzine PAMOATE 25 MG CAPSULE (FP) PO PRN (12:45)
[2023-04-27] MEDS: MELATONIN 5 MG TABLETS PO SCH (22:19)
[2023-04-27] MEDS: THIAMINE HCL 100 MG TABLET (FP) PO SCH (22:19)
[2023-04-28] MEDS ORDERED: LORazepam 0.5 MG TABLET PO ONE (05:00)
[2023-04-28] MEDS ORDERED: diazePAM 5 MG TABLET PO ONE (06:00)
[2023-04-28] MEDS: BUPRENORPHINE/NALOXONE 8 MG/2 MG FILM PACKET SL ONE ×2 (06:24→07:08)
[2023-04-28] MEDS ORDERED: BUPRENORPHINE/NALOXONE 8 MG/2 MG FILM PACKET SL ONE (06:45)
[2023-04-28] MEDS: BUDESONIDE/FORMETEROL FUMARATE 80/4.5 mcg INHALER IH SCH ×2 (09:56→21:15)
[2023-04-28] MEDS: PRENATAL VITAMINS W/ FOLIC ACID TABLET (FP) PO SCH (09:57)
[2023-04-28] MEDS: NICOTINE 14 MG/24 HOURS TOPICAL PATCH TD SCH (09:57)
[2023-04-28] MEDS: THIAMINE HCL 100 MG TABLET (FP) PO SCH (21:14)
[2023-04-28] MEDS: MELATONIN 5 MG TABLETS PO SCH (21:14)
[2023-04-29 09:47] VITALS: BP 130/73; PULSE 80; RESP 18; TEMP 97.8
[2023-04-29] MEDS: BUDESONIDE/FORMETEROL FUMARATE 80/4.5 mcg INHALER IH SCH (10:09)
[2023-04-29] MEDS: PRENATAL VITAMINS W/ FOLIC ACID TABLET (FP) PO SCH (10:09)
[2023-04-29] MEDS: NICOTINE 14 MG/24 HOURS TOPICAL PATCH TD SCH (10:10)
== END 2023-04-29 10:55 | disposition other institution (70) | DRG 773 ==
LOC: YASAS 09:50 → Y3N 11:48
PROVIDERS: ADMIT Allergy & Immunology; ATTEND Surgery
PROC: HZ2ZZZZ Detoxification Services for Substance Abuse Treatment (ICD-10-PCS; principal; 2023-04-24)
DX: F11.23 Opioid dependence with withdrawal (principal); F10.230 Alcohol dependence with withdrawal, uncomplicated; F12.20 Cannabis dependence, uncomplicated; F17.210 Nicotine dependence, cigarettes, uncomplicated; F19.282 Other psychoactive substance dependence with psychoactive substance-induced sleep disorder; F19.259 Other psychoactive substance dependence with psychoactive substance-induced psychotic disorder, unspecified; F19.24 Other psychoactive substance dependence with psychoactive substance-induced mood disorder; E72.20 Disorder of urea cycle metabolism, unspecified; J45.20 Mild intermittent asthma, uncomplicated; E11.9 Type 2 diabetes mellitus without complications; Z59.00 Homelessness unspecified
CPT/HCPCS: 36415; 80053; 82140; 85027; 86780; 87635; 87811